=== PATIENT | female | born 1975 | race Two or more races ===

== ENCOUNTER 2017-12-04 18:00 | Emergency (ER) | payer OTHER ==
[~2017-12-04] VITALS: Ht 162.6 cm; Wt 73.0 kg
[2017-12-04] MEDS ORDERED: ONDANSETRON 2MG/ML, 2ML IVPush ONE (19:00)
[2017-12-04] MEDS ORDERED: SODIUM CHLORIDE 0.9% 1,000ML IVBOLUS ONE (19:00)
[2017-12-04] MEDS ORDERED: SODIUM CHLORIDE FLUSH 10ML SYR IVF ONE (19:00)
[2017-12-04] MEDS ORDERED: ONDANSETRON 2MG/ML, 2ML ONE (19:15)
[2017-12-04 19:19] LABS: MICROSCOPIC NOT IND
[2017-12-04 19:23] LABS: CULTURE INDICATED? NO
[2017-12-04 19:42] LABS: ALANINE AMINOTRANSFERASE 17 U/L (12-78); ALBUMIN 4.1 g/dL (3.4-5.0); ANION GAP 5 mmol/L (5-15); CALCIUM 8.5 mg/dL (8.5-10.1); CHLORIDE 106 mmol/L (98-107)
[2017-12-04 19:43] LABS: BASOPHILS # (AUTO) 0.02 x10^3/uL (0-0.1); BASOPHILS % (AUTO) 0 % (0-1); EOSINOPHILS # (AUTO) 0.18 x10^3/uL (0-0.4); EOSINOPHILS % (AUTO) 2 % (1-7); LYMPHOCYTES # (AUTO) 2.78 x10^3/uL (1-3.4); LYMPHOCYTES % (AUTO) 28 % (22-44); MD NO; MEAN CORPUSCULAR HEMOGLOBIN 31.3 pg (27.0-34.8); MEAN CORPUSCULAR HGB CONC 33.7 g/dL (32.4-35.8); MEAN CORPUSCULAR VOLUME 92.7 fL (80-100); MEAN PLATELET VOLUME 8.7 fL (7.4-10.4); MONOCYTES % (AUTO) 8 % (2-9); NEUTROPHILS # (AUTO) 6.03 x10^3/uL (1.8-6.8); NEUTROPHILS % (AUTO) 61 % (42-75); PLATELET COUNT 286 x10^3/uL (130-400); RED BLOOD COUNT 4.58 x10^6/uL (3.82-5.3); RED CELL DISTRIBUTION WIDTH 12.7 % (9.6-15.2)
[2017-12-04 19:47] LABS: ALKALINE PHOSPHATASE 66 U/L (45-117); BILIRUBIN,TOTAL 0.2 mg/dL (0.2-1.0); CREATININE 0.63 mg/dL (0.55-1.02); TOTAL PROTEIN 8.2 g/dL (6.4-8.2)
[2017-12-04 21:02] VITALS: BP 107/76
== END 2017-12-04 21:09 | disposition home or self-care (01) ==
LOC: ED 21:06
DX: R10.11 Right upper quadrant pain (principal)
CPT/HCPCS: 36415; 76700; 80053; 81003; 83690; 84703; 85025; 96361; 96374; 99285; J2405; J7030